=== PATIENT | female | born 1955 | race Caucasian/White ===

== ENCOUNTER 2020-08-16 08:23 | Outpatient (CLI) | payer OTHER | END 2020-08-16 08:25 | disposition home or self-care (01) | LOC: SONOGRAMA 08:23 | PROVIDERS: ATTEND Pathology Anatomic Pathology & Clinical Pathology | DX: E04.2 Nontoxic multinodular goiter (principal) ==

== ENCOUNTER 2021-01-13 09:48 | Outpatient (CLI) | payer OTHER | END 2021-01-13 09:56 | disposition home or self-care (01) | LOC: SONOGRAMA 09:48 | PROVIDERS: ATTEND Pathology Anatomic Pathology & Clinical Pathology | DX: E04.1 Nontoxic single thyroid nodule (principal); D34 Benign neoplasm of thyroid gland; E04.8 Other specified nontoxic goiter ==